=== PATIENT | female | born 1945 | race Caucasian/White ===

== ENCOUNTER 2021-07-18 15:16 | Inpatient (IN) | payer MEDICARE, SELFPAY ==
[~2021-07-18] VITALS: Ht 154.9 cm; Wt 56.7 kg
[2021-07-18 15:22] VITALS: BP 111/68
--- NOTE | 2021-07-18 16:40 | NUR ---
Dr. Tirado is evaluating pt at bedside
[2021-07-18] MEDS ORDERED: NACL 0.9% 1,000 ML IV ONE (16:45)
--- NOTE | 2021-07-18 17:20 | NUR ---
Lab at bedside
--- NOTE | 2021-07-18 17:28 | NUR ---
EMT at bedside for EKG
--- NOTE | 2021-07-18 17:49 | NUR ---
PT MOVED TO ER BED 5.
--- NOTE | 2021-07-18 17:50 | NUR ---
76 y/o F BIBA from [facility] c/o SOB episode x 15 minutes. Per EMS, patient presented with audible wheezes on scene and given Albuterol neb treatment. Pt baseline A&Ox2 baseline for pt. Unable to obtain complete assessment d/t patient mentation. Pt with adult diaper, Reddy catheter in place. Irregular pulse rate @ the radial. Pt placed onto monitoring engineer. SpO2 95% on 4L by NC. Bed locked in lowest position, side rails x 2 for pt safety. PMH: CKD3, recurrent falls, sleep apnea, dementia, HLD, HTN, hypothyroidism, Alzheimers, dementia, a Fib Meds: carvedilol, pradaxa, celexa, seroquel, ABX, citalopram, omperazole, levothyroxine, colchicine Allergies: busprione, odeine, lovastatin, trazodone, see list for full allergies
[2021-07-18 18:03] LABS: BASOPHILS # (AUTO) 0.1 K/uL (0.00-0.22); BASOPHILS % (AUTO) 0.6 % (0.0-2.0); EOSINOPHILS # (AUTO) 0.4 K/uL (0-0.4); EOSINOPHILS % (AUTO) 3.1 % (0.0-4.0); HEMATOCRIT 38.2 % (36-48); HEMOGLOBIN 12.7 g/dL (12.0-16.0); LYMPHOCYTES # (AUTO) 0.8 K/uL (2.5-16.5); MEAN CORPUSCULAR HEMOGLOBIN 29 pg (27-31); MEAN CORPUSCULAR HGB CONC 33 g/dL (33-37); MONOCYTES # (AUTO) 1.2 K/uL (0.8-1.0); MONOCYTES % (AUTO) 8.9 % (1.7-9.3); NEUTROPHILS # (AUTO) 10.8 K/uL (1.8-7.7); NEUTROPHILS % (AUTO) 81.4 % (42.2-75.2); PLATELET COUNT (AUTO) 472 K/uL (140-450); RED BLOOD CELL COUNT(AUTO) 4.38 MIL/uL (4.20-5.40); RED CELL DISTRIBUTION WIDTH 15.6 % (11.6-13.7); WHITE BLOOD COUNT (AUTO) 13.3 K/uL (4.8-10.8)
[2021-07-18 18:29] LABS: ALBUMIN 2.2 g/dL (3.4-5.0); ANION GAP 9.1 (8-16); ASPARTATE AMINOTRANSFERASE 23 U/L (15-37); CARBON DIOXIDE 25.8 mmol/L (21-32); CHLORIDE 104 mmol/L (98-107); CREATININE 0.9 mg/dL (0.6-1.3); GLUCOSE 118 mg/dL (74-106); LIPASE 186 U/L (73-393); POTASSIUM 3.9 mmol/L (3.5-5.1); SODIUM SERUM 135 mmol/L (136-145); TOTAL BILIRUBIN 0.4 mg/dL (0.0-1.0); UREA NITROGEN, BLOOD 19 mg/dL (7-18)
--- NOTE | 2021-07-18 19:05 | NUR ---
RT at bedside for ABG draw. Unable to draw
--- NOTE | 2021-07-18 19:20 | NUR ---
Report and transfer of care endorsed to RAFAEL Forrest
[2021-07-18] MEDS ORDERED: methylPREDNISolone SS 125 MG in WATER STERILE 2 ML IV ONE (22:45)
[2021-07-18] MEDS ORDERED: DILTIAZEM 25 MG/5 ML VIAL IVP ONE (22:45)
[2021-07-18] MEDS ORDERED: ALBUTEROL SULFATE/IPRATROPIU 3 ML SOL IH ONE (22:45)
[2021-07-18] MEDS ORDERED: AZITHROMYCIN 500 MG in DEXTROSE 5% 250 ML IV ONE (22:45)
--- NOTE | 2021-07-18 23:06 | NUR ---
RT AT BEDSIDE FOR BREATHING TREATMENT
[2021-07-18] MEDS ORDERED: AZITHROMYCIN 500 MG INJ VIAL IV ONE (23:09)
[2021-07-19 00:02] LABS: APPEARANCE,URINE CLOUDY (CLEAR); BILIRUBIN,URINE NEGATIVE (NEGATIVE); BLOOD, URINE 3+ (NEGATIVE); COLOR,URINE YELLOW (YELLOW); LEUKOCYTE ESTERASE ,URINE TRACE (NEGATIVE); NITRITE, URINE NEGATIVE (NEGATIVE); PH,URINE 5.5 (5.0-9.0); UGLUCOSE NEGATIVE (NEGATIVE)
[2021-07-19 00:10] LABS: RBC,URINE 50-80 /HPF (0-5); WBC,URINE 0-5 /HPF (0-5)
--- NOTE | 2021-07-19 01:08 | NUR ---
PT BROUGHT TO CT
--- NOTE | 2021-07-19 01:31 | NUR ---
PT BACK FROM CT
[2021-07-19] MEDS ORDERED: cefTRIAXone 1,000 MG VIAL ONE (01:59)
[2021-07-19] MEDS ORDERED: ONDANSETRON 4 MG/2 ML VIAL IVP ONE (04:50)
[2021-07-19] MEDS ORDERED: MORPHINE SULFATE 2 MG/ML SYR IVP ONE (04:50)
--- NOTE | 2021-07-19 07:19 | NUR ---
TRANSFER OF CARE REPORT GIVEN TO ROYCE HALL
--- NOTE | 2021-07-19 07:30 | NUR ---
RECEIVED PT IN [facility] AOX2. ON 2L NC SATURATION 98% iv INTACT AND PATENT SL. F/C DRAINING TO GRAVITY. NAD. SAFETY MAINTAINED.
[2021-07-19] MEDS ORDERED: ONDANSETRON 4 MG/2 ML VIAL ONE (08:14)
[2021-07-19] MEDS ORDERED: MORPHINE SULFATE 2 MG/ML SYR ONE (08:14)
--- NOTE | 2021-07-19 11:24 | NUR ---
PT RESTING IN [facility] NO CHANGES NOTED. PENDING [facility]
[2021-07-19] MEDS ORDERED: ATOR40TA PO (15:50)
[2021-07-19] MEDS ORDERED: ASCO-786 PO (15:50)
[2021-07-19] MEDS ORDERED: QUET25TA PO (15:50)
[2021-07-19] MEDS ORDERED: CARV3.12 PO (15:50)
[2021-07-19] MEDS ORDERED: CIPR250T3 PO (15:50)
[2021-07-19] MEDS ORDERED: MEMA5TAB PO (15:50)
[2021-07-19] MEDS ORDERED: CITA-71 PO (15:50)
[2021-07-19] MEDS ORDERED: DABI150C PO (15:50)
[2021-07-19] MEDS ORDERED: LORazepam 2 MG/ML VIAL IVP ONE (15:50)
--- NOTE | 2021-07-19 16:24 | NUR ---
PT AGITATED SCREAMING, ATTEMPTING TO HIT STAFF, MEDICATED WITH ATIVAN PER ORDER. TOLERATED WELL. PENDING ADMISSION
[2021-07-19] MEDS ORDERED: LORazepam 2 MG/ML VIAL ONE (18:18)
[2021-07-19] MEDS ORDERED: LORazepam 2 MG/ML VIAL IVP PRN (18:20)
--- NOTE | 2021-07-19 19:26 | NUR ---
RECIEVED REPORT FROM ROYCE HALL
[2021-07-19] MEDS ORDERED: MAG SULF 2000 MG/WATER PREMIX 50 ML IV PRN (20:15)
[2021-07-19] MEDS ORDERED: POTASSIUM CHLORIDE 10 MEQ TABER PO PRN (20:15)
[2021-07-19] MEDS ORDERED: ACETAMINOPHEN 325 MG TAB PO PRN (20:35)
[2021-07-19] MEDS ORDERED: DOCUSATE SODIUM 100 MG GELCAP PO PRN (20:35)
[2021-07-19] MEDS ORDERED: ONDANSETRON 4 MG/2 ML VIAL IM/IVP PRN (20:35)
[2021-07-19] MEDS ORDERED: ZOLPIDEM 5 MG TAB PO PRN (20:35)
[2021-07-19] MEDS ORDERED: PIPERACILLIN/TAZOBACTAM 3.375 GM VIAL IV ONE (20:53)
[2021-07-19] MEDS: PIPERACILLIN/TAZOBACTAM 3.375 GM in DEXTROSE 5% 50 ML IV SCH (22:45)
[2021-07-19 22:46] LABS: ALBUMIN 2.4 g/dL (3.4-5.0); ANION GAP 13.2 (8-16); ASPARTATE AMINOTRANSFERASE 28 U/L (15-37); CHLORIDE 105 mmol/L (98-107); CHOL/HDL RATIO 4.3 (1-4.5); CREATININE 0.8 mg/dL (0.6-1.3); GLUCOSE 99 mg/dL (74-106); HDL CHOLESTEROL 26 mg/dL (40-60); LDL (CALC) 74 mg/dL (60-100); POTASSIUM 4.2 mmol/L (3.5-5.1); SODIUM SERUM 140 mmol/L (136-145); THYROID STIMULATING HORMONE 3.43 uIU/mL (0.34-3.74); TOTAL BILIRUBIN 0.4 mg/dL (0.0-1.0); TRIGLYCERIDES 57 mg/dL (30-150); UREA NITROGEN, BLOOD 16 mg/dL (7-18)
[2021-07-19 23:15] LABS: PROTHROMBIN TIME 11.4 secs (10.8-13.4)
[2021-07-19] MEDS: NACL 0.9% 1,000 ML IV SCH (23:16)
[2021-07-19] MEDS: methylPREDNISolone SS 125 MG/2 ML VIAL IVP SCH (23:18)
[2021-07-19] MEDS: DABIGATRAN ETEXILATE MESYLAT 75 MG CAP PO SCH (23:46)
[2021-07-19] MEDS: ATORVASTATIN 20 MG TAB PO SCH (23:48)
[2021-07-19] MEDS: carvediloL 3.125 MG TAB PO SCH (23:48)
[2021-07-19] MEDS ORDERED: CRUSHER, PILL MC ONE (23:59)
--- NOTE | 2021-07-20 02:29 | NUR ---
PT IS RESTING COMFORTABLY IN BED, WITH RAILS UP X2, BED IN LOWEST POSITION, AND HOB SLIGHTLY RAISED. EMPTIED 1600ML OF URINE FROM JAVIER RESEVIOR.
[2021-07-20] MEDS ORDERED: PIPERACILLIN/TAZOBACTAM 3.375 GM VIAL IV ONE ×3 (04:52→21:14)
[2021-07-20] MEDS: methylPREDNISolone SS 125 MG/2 ML VIAL IVP SCH ×2 (05:08→13:08)
[2021-07-20] MEDS: PIPERACILLIN/TAZOBACTAM 3.375 GM in DEXTROSE 5% 50 ML IV SCH ×3 (05:09→22:20)
--- NOTE | 2021-07-20 07:30 | NUR ---
RECEIVED PT IN [facility] AOX1, CONFUSED AGITATED. F/C DRAINING TO GRAVITY. BREATHING UNLABORED. 2L NC SATURATION 97%. NAD. SAFETY MAINTAINED
[2021-07-20] MEDS: CITALOPRAM 20 MG TAB PO SCH (09:00)
[2021-07-20] MEDS: DABIGATRAN ETEXILATE MESYLAT 75 MG CAP PO SCH (09:00)
[2021-07-20] MEDS: ASCORBIC ACID 500 MG TAB PO SCH (09:00)
[2021-07-20] MEDS: QUEtiapine FUMARATE 25 MG TAB PO SCH (09:00)
[2021-07-20] MEDS: MEMANTINE 10 MG TAB PO SCH (09:00)
[2021-07-20] MEDS: carvediloL 3.125 MG TAB PO SCH ×2 (09:00→22:18)
--- NOTE | 2021-07-20 09:27 | NUR ---
PER PALOMO, CPT - PT REFUSED BLOOD DRAW
--- NOTE | 2021-07-20 09:30 | NUR ---
PT MEDICATED FOR AGITATION PER MD ORDER.
[2021-07-20] MEDS ORDERED: CRUSHER, PILL MC ONE ×2 (09:40→21:15)
[2021-07-20] MEDS ORDERED: LACTULOSE 20 GM/30 ML UDC PO ONE (10:45)
--- NOTE | 2021-07-20 11:00 | NUR ---
PT MORE CALM , RESTING IN GURNEY.
[2021-07-20] MEDS: NACL 0.9% 1,000 ML IV SCH (13:08)
--- NOTE | 2021-07-20 15:00 | NUR ---
PT INCONTINENT OF STOOL, BED BATH GIVEN. CLEANED AND REPOSITIONED. NAD. SAFETY MAINTAINED.
[2021-07-20 18:30] LABS: BASOPHILS % (AUTO) 0.1 % (0.0-2.0); HEMATOCRIT 38.5 % (36-48); HEMOGLOBIN 12.4 g/dL (12.0-16.0); LYMPHOCYTES # (AUTO) 0.4 K/uL (2.5-16.5); LYMPHOCYTES % (AUTO) 2.3 % (20.5-51.1); MEAN CORPUSCULAR HEMOGLOBIN 29 pg (27-31); MEAN CORPUSCULAR HGB CONC 32 g/dL (33-37); MEAN CORPUSCULAR VOLUME 88.3 fL (80-94); MONOCYTES # (AUTO) 0.3 K/uL (0.8-1.0); MONOCYTES % (AUTO) 1.6 % (1.7-9.3); NEUTROPHILS # (AUTO) 15.1 K/uL (1.8-7.7); PLATELET COUNT (AUTO) 546 K/uL (140-450); RED BLOOD CELL COUNT(AUTO) 4.36 MIL/uL (4.20-5.40); RED CELL DISTRIBUTION WIDTH 15.3 % (11.6-13.7); WHITE BLOOD COUNT (AUTO) 15.7 K/uL (4.8-10.8)
[2021-07-20 18:50] LABS: ANION GAP 10.2 (8-16); CARBON DIOXIDE 28.8 mmol/L (21-32); CHLORIDE 106 mmol/L (98-107); CREATININE 0.9 mg/dL (0.6-1.3); GLUCOSE 140 mg/dL (74-106); SODIUM SERUM 141 mmol/L (136-145); UREA NITROGEN, BLOOD 19 mg/dL (7-18)
[2021-07-20 18:53] LABS: MAGNESIUM 1.9 mg/dL (1.8-2.4)
--- NOTE | 2021-07-20 19:00 | NUR ---
PT ASLEEP NO S/S PAIN OR DISCOMFORT. F/C DRAINING TO GRAVITY. NAD. SAFETY MAINTAINED
--- NOTE | 2021-07-20 19:18 | NUR ---
REPORT RECIEVED FROM ROYCE HALL
[2021-07-20] MEDS: ATORVASTATIN 20 MG TAB PO SCH (22:17)
[2021-07-20] MEDS: methylPREDNISolone SS 40 MG/ML VIAL IVP SCH (22:19)
[2021-07-21] MEDS: DABIGATRAN ETEXILATE MESYLAT 75 MG CAP PO SCH ×3 (01:19→21:00)
[2021-07-21] MEDS: LORazepam 2 MG/ML VIAL IM/IVP PRN (01:37)
[2021-07-21] MEDS ORDERED: PIPERACILLIN/TAZOBACTAM 3.375 GM VIAL IV ONE (05:14)
[2021-07-21] MEDS: methylPREDNISolone SS 40 MG/ML VIAL IVP SCH ×3 (05:24→21:00)
[2021-07-21] MEDS: PIPERACILLIN/TAZOBACTAM 3.375 GM in DEXTROSE 5% 50 ML IV SCH ×3 (05:25→21:00)
--- NOTE | 2021-07-21 07:22 | NUR ---
Report and continuation of care received from RAFAEL Forrest
--- NOTE | 2021-07-21 07:22 | NUR ---
GAVE REPORT TO STEW HALL
--- NOTE | 2021-07-21 07:25 | NUR ---
Patient with both eyes open in semi-fowlers position; A&Ox1 patient confused, agitated and moaning.
--- NOTE | 2021-07-21 08:21 | NUR ---
Patient groaning in bed; reoriented to place and situation. Patient provided with blanket for comfort measures.
[2021-07-21] MEDS: carvediloL 3.125 MG TAB PO SCH ×2 (10:14→21:51)
[2021-07-21] MEDS: CITALOPRAM 20 MG TAB PO SCH (10:14)
[2021-07-21] MEDS: QUEtiapine FUMARATE 25 MG TAB PO SCH (10:15)
[2021-07-21] MEDS: ASCORBIC ACID 500 MG TAB PO SCH (10:15)
[2021-07-21] MEDS: MEMANTINE 10 MG TAB PO SCH (10:15)
--- NOTE | 2021-07-21 10:15 | NUR ---
Patient resting in low-fowlers facing left side. O2 remains in place SpO2 96% on 2L by NC. casino floor runner in place. Bed locked in lowest position, side rails x 2.
--- NOTE | 2021-07-21 10:25 | NUR ---
PATIENT HAS BEEN SCREENED AND CATEGORIZED MODERATE NUTRITION RISK. PATIENT WILL BE SEEN WITHIN 3-5 DAYS OF ADMISSION. 07/22/2021-07/24/[address]
--- NOTE | 2021-07-21 10:45 | NUR ---
PATIENT DISCONNECTED IV TO R UPPER ARM. ATTEMPTING TO ESTABLISH NEW LINE.
--- NOTE | 2021-07-21 10:50 | NUR ---
UNSUCCESSFUL AT STARTING IV.
--- NOTE | 2021-07-21 11:31 | NUR ---
Patient resting in semi-fowlers mumbling to self. 2L by NC in place. site monitor in place. Bed locked in lowest position, side rails x 2.
--- NOTE | 2021-07-21 11:32 | NUR ---
Spoke with Mark stinson normal mentation d/t Alzheimers and dementia and A&Ox1. Addendum: 07/21/21 at 1136 by JASPREET Reports has power of managing attorney and states plan to change patient's POLST d/t deteriorating health. Son provided with status update and aware of recontact upon bed placement for patient.
--- NOTE | 2021-07-21 11:39 | NUR ---
725mL urine discarded from Reddy catheter.
--- NOTE | 2021-07-21 11:45 | NUR ---
Attempted to start IV; patient agitated and fighting. Unable to obtain IV; will attempt later.
[2021-07-21] MEDS ORDERED: OLANZapine 10 MG VIAL IM ONE (12:30)
--- NOTE | 2021-07-21 12:30 | NUR ---
Verbal order received for Zyprexa 5mg IM.
--- NOTE | 2021-07-21 12:30 | NUR ---
Dr. Dueñas is evaluating pt at bedside
[2021-07-21] MEDS ORDERED: WATER STERILE 10 ML MC ONE (12:31)
--- NOTE | 2021-07-21 12:58 | NUR ---
validation technician at bedside
[2021-07-21] MEDS ORDERED: OLANZapine 10 MG VIAL IM SCH (13:30)
[2021-07-21] MEDS ORDERED: FLUCONAZOLE 200 MG/NS PREMIX 100 ML IV ONE (14:40)
--- NOTE | 2021-07-21 15:13 | NUR ---
RT at bedside for EKG
[2021-07-21] MEDS: AMIODARONE 200 MG TAB PO SCH (17:35)
--- NOTE | 2021-07-21 18:06 | NUR ---
Dr. Tan paged regarding order for PICC line. Unsuccessful at IV attempts at this time
--- NOTE | 2021-07-21 19:25 | NUR ---
Report and transfer of care endorsed to RAFAEL Lindquist
--- NOTE | 2021-07-21 20:00 | NUR ---
attempted to start iv. pt contracts arm and swipes. pt refuses iv
[2021-07-21] MEDS: FLUCONAZOLE 200 MG/NS PREMIX 100 ML IV SCH (21:00)
[2021-07-21] MEDS: ATORVASTATIN 20 MG TAB PO SCH (21:53)
[2021-07-21] MEDS: NACL 0.9% 1,000 ML IV SCH (22:35)
--- NOTE | 2021-07-22 00:04 | NUR ---
ATTEMPTED ONE LAST TIME TO INSER IV. PT REFUSED.
--- NOTE | 2021-07-22 03:03 | NUR ---
CALLED HOUSE SUP FOR PICC LINE NURSE
[2021-07-22] MEDS: PIPERACILLIN/TAZOBACTAM 3.375 GM in DEXTROSE 5% 50 ML IV SCH ×3 (05:00→21:00)
[2021-07-22] MEDS: methylPREDNISolone SS 40 MG/ML VIAL IVP SCH ×3 (05:00→23:17)
--- NOTE | 2021-07-22 05:33 | NUR ---
STILL WAITING FOR PICC LINE NURSE. PT IS AWAKE LYING IN SUPINE POSITION. A&OX0. PT IS RESPONSIVE TO PAIN. PT DOES NPT WANT TO BE READJUSTED
--- NOTE | 2021-07-22 07:57 | NUR ---
REPORT RECEIVED FROM SHAN BARNES FOR TRANSFER OF CARE
--- NOTE | 2021-07-22 07:59 | NUR ---
Pt report given to RONNI. Transfer of care at this time.
--- NOTE | 2021-07-22 08:00 | NUR ---
CALLED [facility] AND REQUESTED PICC LINE NURSE TO OBTAIN IV ACCESS
--- NOTE | 2021-07-22 08:18 | NUR ---
PT RESPOSITIONED FOR COMFORT AND PROVIDED WITH FRESH LINEN
[2021-07-22] MEDS: QUEtiapine FUMARATE 25 MG TAB PO SCH (08:29)
[2021-07-22] MEDS: MEMANTINE 10 MG TAB PO SCH (08:29)
[2021-07-22] MEDS: ASCORBIC ACID 500 MG TAB PO SCH (08:29)
[2021-07-22] MEDS: CITALOPRAM 20 MG TAB PO SCH (08:29)
[2021-07-22] MEDS: carvediloL 3.125 MG TAB PO SCH ×2 (08:29→22:57)
--- NOTE | 2021-07-22 08:29 | NUR ---
BS 109
[2021-07-22] MEDS: AMIODARONE 200 MG TAB PO SCH ×3 (09:00→22:58)
[2021-07-22] MEDS: DABIGATRAN ETEXILATE MESYLAT 75 MG CAP PO SCH ×2 (09:00→23:12)
--- NOTE | 2021-07-22 09:25 | NUR ---
Patient will be admitted to care of DR. COOK. Admited to TELE. Will go to room 119A. Belongings list completed. Report to RAFAEL MELGAR.
[2021-07-22 09:40] VITALS: BP 141/95
--- NOTE | 2021-07-22 09:40 | NUR ---
RECEIVED PT FROM ER NURSE FOR CONTINUITY OF CARE. PT IS AWAKE, BUT VERY DROWSY. NONVERBAL, MAKING NOISES. ON 3L O2 NC WITH BREATHING UNLABORED. O2 SAT IS 93%. NO DISTRESS NOTED. SKIN IS WARM, DRY, AND INTACT. JAVIER CATH IN PLACE. NO IV AT THIS TIME. PT IS A HARD STICK, WILL ATTEMPT TO PLACE IV SHORTLY. PICC LINE ORDER BUT NO CONSENT SIGNED. PT IS STABLE. PLAN OF CARE DISCUSSED.
[2021-07-22 10:25] LABS: PHOSPHORUS 2.9 mg/dL (2.5-4.9)
[2021-07-22 10:26] LABS: ANION GAP 11.6 (8-16); CARBON DIOXIDE 27.9 mmol/L (21-32); CHLORIDE 108 mmol/L (98-107); CREATININE 0.8 mg/dL (0.6-1.3); GLUCOSE 157 mg/dL (74-106); POTASSIUM 3.5 mmol/L (3.5-5.1); SODIUM SERUM 144 mmol/L (136-145); UREA NITROGEN, BLOOD 31 mg/dL (7-18)
--- NOTE | 2021-07-22 10:30 | NUR ---
NEW IV LINE PLACED IN THE RIGHT WRIST 22 GAUGE. PATENT, FLUSHING, AND BLOOD DRAWBACK NOTED. FLUIDS WERE STARTED ORDERED. PT STILL DISORIENTED AND NONVERBAL. STABLE AT THIS TIME.
[2021-07-22 10:50] LABS: BASOPHILS # (AUTO) 0.1 K/uL (0.00-0.22); BASOPHILS % (AUTO) 0.2 % (0.0-2.0); HEMATOCRIT 39.9 % (36-48); HEMOGLOBIN 13.3 g/dL (12.0-16.0); LYMPHOCYTES # (AUTO) 0.5 K/uL (2.5-16.5); LYMPHOCYTES % (AUTO) 1.9 % (20.5-51.1); MEAN CORPUSCULAR HEMOGLOBIN 29 pg (27-31); MEAN CORPUSCULAR HGB CONC 33 g/dL (33-37); MEAN CORPUSCULAR VOLUME 86.9 fL (80-94); MONOCYTES # (AUTO) 1.3 K/uL (0.8-1.0); MONOCYTES % (AUTO) 5.6 % (1.7-9.3); NEUTROPHILS # (AUTO) 21.7 K/uL (1.8-7.7); NEUTROPHILS % (AUTO) 92.3 % (42.2-75.2); PLATELET COUNT (AUTO) 870 K/uL (140-450); RED BLOOD CELL COUNT(AUTO) 4.59 MIL/uL (4.20-5.40); RED CELL DISTRIBUTION WIDTH 14.9 % (11.6-13.7); WHITE BLOOD COUNT (AUTO) 23.5 K/uL (4.8-10.8)
--- NOTE | 2021-07-22 11:01 | NUR ---
PT REFUSED TO TAKE MEDICATION SCHEDULED AT 0900 AM. PT IS NOT ALERT AND VERY DROWSY. WILL CONTINUE TO MONITOR.
--- NOTE | 2021-07-22 13:00 | NUR ---
PT WAS CHANGED AND REPOSITIONED. BED BATH GIVEN. GOWN CHANGED. ON 3L O2 NC WITH BREATHING UNLABORED. FLACC 0. IV IS PATENT AND INTACT. PT STABLE.
[2021-07-22] MEDS: NACL 0.9% 1,000 ML IV SCH (13:29)
--- NOTE | 2021-07-22 14:29 | NUR ---
RECEIVED VERBAL CONSENT FROM MARIA FERNANDA JOHNSON SON FOR PICC LINE INSERTION, VERIFIED BY FIDE TORREZ. SON DISCUSSED ABOUT CHANGING CODE STATUS TO DNR/COMFORT MEASURES, REFERRED HIM TO DR KWON. MESSAGE WERE SENT TO DR KWON REGARDING REQUEST FOR CODE STATUS CHANGE. PHONE NUMBER FOR MARIA FERNANDA [phone]
--- NOTE | 2021-07-22 14:38 | NUR ---
FAXED PICC LINE CONSENT TO DR. KWON [phone]. ALSO INFORMED HIM THAT THE PT HAS BEEN RECEIVING FLUIDS VIA IV AND MEDS THROUGH IV. INFORMED DR. KWON THAT PT IS REFUSING PO MEDS/FOOD. DOCTOR AWARE.
[2021-07-22 16:00] VITALS: BP 143/84
--- NOTE | 2021-07-22 18:07 | NUR ---
CALLED PICC LINE NURSE AND LEFT MESSAGE TO PLACE PICC LINE FOR PT. DETAILED VOICEMAIL LEFT WITH CALL BACK NUMBER.
--- NOTE | 2021-07-22 19:12 | NUR ---
ENDORSED PT TO SHERIFF DEPUTY NURSE FOR CONTINUITY OF CARE. PT IS STABLE. PLAN OF CARE DISCUSSED.
[2021-07-22 20:00] VITALS: BP 117/60
--- NOTE | 2021-07-22 20:00 | NUR ---
RECEIVED ENDORSEMENT FROM RN DAYSHIFT NURSE AT BEDSIDE FOR CONTINUITY OF CARE, PT IN STABLE CONDITION. PT IN BED AOX1 SHE IS ON 3 LITERS VIA N/C. SHE IS AWAKE AND WILL RESPOND TO NAME AND LIGHT SHAKING. V/S T 97.1 P 81 R 20 B/P 117/60 02 95% ON 3 LITERS VIA N/C. ALL FALLS PRECAUTIONS IN PLACE.
--- NOTE | 2021-07-22 21:00 | NUR ---
PT WAS GIVEN ORDERED DIFLUCAN IV VIA IV SITE ON LEFT HAND. PT ALSO GIVEN IVP SOLUMEDROL AND PO MEDS OF COREG, AMIODARONE, LIPITOR AND PARADOX. EDUCATION PROVIDED AT BEDSIDE, PT TOOK MOST OF THE MEDS WITH ENCOURAGEMENT BUT SPIT PT SOME OF IT OUT. PT ATE NONE OF HER SUPPER AT BEDSIDE. PT UNABLE TO VERBALIZE UNDERSTANDING OF MEDICATION AND PURPOSE OF MEDICATIONS.
--- NOTE | 2021-07-22 22:00 | NUR ---
HILTON HUNG AND RUNNING ORDERED.
[2021-07-22] MEDS: ATORVASTATIN 20 MG TAB PO SCH (22:57)
[2021-07-22] MEDS: FLUCONAZOLE 200 MG/NS PREMIX 100 ML IV SCH (23:18)
[2021-07-23] VITALS: BP 130/90
--- NOTE | 2021-07-23 | NUR ---
PT IN BED HOB UP 45% PT DECLINED TO BE TURNED AT THIS TIME. NORMAL SALINE RUNNING AT 60MLS/HR ORDERED. PT HAS NO S/S OF PAIN OR DISTRESS NOTED. V/S FOLLOWS: T 97.0 P 81 R 18 B/P 1302/90 02 95% ON 3 LITERS VIA N/C. ALL ORDERED PRECAUTIONS IN PLACE. AWAITING RETURN CALL FROM PICC LINE NURSE FOR PLACEMENT.
[2021-07-23] MEDS: PIPERACILLIN/TAZOBACTAM 3.375 GM in DEXTROSE 5% 50 ML IV SCH ×3 (00:23→23:30)
[2021-07-23 04:00] VITALS: BP 132/89
[2021-07-23] MEDS: methylPREDNISolone SS 40 MG/ML VIAL IVP SCH ×3 (05:14→23:30)
[2021-07-23 06:44] LABS: BASOPHILS % (AUTO) 0.2 % (0.0-2.0); EOSINOPHILS % (AUTO) 0.1 % (0.0-4.0); HEMATOCRIT 36.6 % (36-48); HEMOGLOBIN 12.1 g/dL (12.0-16.0); LYMPHOCYTES # (AUTO) 0.3 K/uL (2.5-16.5); LYMPHOCYTES % (AUTO) 1.8 % (20.5-51.1); MEAN CORPUSCULAR HEMOGLOBIN 29 pg (27-31); MEAN CORPUSCULAR HGB CONC 33 g/dL (33-37); MEAN CORPUSCULAR VOLUME 86.4 fL (80-94); MONOCYTES # (AUTO) 0.4 K/uL (0.8-1.0); MONOCYTES % (AUTO) 2.2 % (1.7-9.3); NEUTROPHILS # (AUTO) 17.5 K/uL (1.8-7.7); NEUTROPHILS % (AUTO) 95.7 % (42.2-75.2); PLATELET COUNT (AUTO) 749 K/uL (140-450); RED BLOOD CELL COUNT(AUTO) 4.24 MIL/uL (4.20-5.40); RED CELL DISTRIBUTION WIDTH 15.2 % (11.6-13.7); WHITE BLOOD COUNT (AUTO) 18.3 K/uL (4.8-10.8)
[2021-07-23 07:16] LABS: CARBON DIOXIDE 29.8 mmol/L (21-32); CHLORIDE 112 mmol/L (98-107); CREATININE 1.1 mg/dL (0.6-1.3); GLUCOSE 144 mg/dL (74-106); POTASSIUM 3.8 mmol/L (3.5-5.1); SODIUM SERUM 149 mmol/L (136-145); UREA NITROGEN, BLOOD 38 mg/dL (7-18)
--- NOTE | 2021-07-23 07:25 | NUR ---
RECEIVED BEDSIDE REPORT FROM CORRECTIONAL CLASSIFICATION COUNSELOR NURSE FOR CONTINUITY OF CARE. PT IS ASLEEP. CHEST RISE AND FALL SYMMETRICAL. ON 3L O2 NC WITH BREATHING UNLABORED. JAVIER CATH IN PLACE DRAINING CLEAR, YELLOW URINE. SKIN IS WARM, DRY, AND INTACT. IV IS IN THE RIGHT WRIST 22 GAUGE RUNNING NS AT 60 ML PER HOUR PER ORDER. PT IS STABLE. PLAN OF CARE DISCUSSED.
[2021-07-23 07:29] LABS: MAGNESIUM 2.1 mg/dL (1.8-2.4); PHOSPHORUS 2.9 mg/dL (2.5-4.9)
[2021-07-23] MEDS: NACL 0.9% 1,000 ML IV SCH (07:55)
[2021-07-23 08:00] VITALS: BP 178/92
[2021-07-23] MEDS: carvediloL 3.125 MG TAB PO SCH ×2 (09:00→21:00)
[2021-07-23] MEDS: ASCORBIC ACID 500 MG TAB PO SCH (09:00)
[2021-07-23] MEDS: AMIODARONE 200 MG TAB PO SCH ×2 (09:00→21:00)
[2021-07-23] MEDS: DABIGATRAN ETEXILATE MESYLAT 75 MG CAP PO SCH ×2 (09:00→21:00)
[2021-07-23] MEDS: CITALOPRAM 20 MG TAB PO SCH (09:00)
[2021-07-23] MEDS: MEMANTINE 10 MG TAB PO SCH (09:00)
[2021-07-23] MEDS: QUEtiapine FUMARATE 25 MG TAB PO SCH (09:00)
--- NOTE | 2021-07-23 09:30 | NUR ---
PT IS LETHARGIC AND DOES NOT WANT TO EAT BREAKFAST. ATTEMPTED TO FEED PT AND SHE WOULD NOT OPEN MOUTH. PT REFUSED. INFORMED DR. KWON THAT PT HAS BEEN REFUSING MEDS AND FOOD. SUGGESTED SWALLOW EVAL AND HE AGREED. PT WILL BE PLACED ON NPO TILL EVAL IS COMPLETE.
--- NOTE | 2021-07-23 10:00 | NUR ---
SPOKE TO DR. KWON, INFORMING HIM THAT THE IV IN THE RIGHT HAND IS WORKING AND PATENT. HE STATED TO HOLD OFF ON THE PICC LINE INSERTION FOR NOW.
--- NOTE | 2021-07-23 10:28 | NUR ---
RECHECKED PT'S BP TWICE. FIRST READING 166/93 AND THE SECOND 172/92. HR IS 80. INFORMED DR. KWON ABOUT THE BP AND ASKED FOR BP MED VIA IV ROUTE. WILL WAIT FOR RESPONSE BACK.
[2021-07-23] MEDS: hydrALAZINE 20 MG/ML VIAL IVP PRN ×2 (11:25→18:00)
--- NOTE | 2021-07-23 11:25 | NUR ---
APRESOLINE IVP GIVEN FOR BP 172/92, HR 80. WILL CONTINUE TO MONITOR BP.
[2021-07-23 12:00] VITALS: BP 155/87
--- NOTE | 2021-07-23 12:18 | NUR ---
07/23/2021 RD INITIAL ASSESSMENT COMPLETED PLEASE REFER TO NUTRITION ASSESSMENT UNDER CARE ACTIVITY FOR ESTIMATED NUTRITIONAL NEEDS. ADVANCE DIET PER KAIAKO KURA [place] MAORI RECOMMENDATIONS ELEVATED NUTRITION RISK TO HIGH DUE TO PT REFUSAL TO EAT, NPO STATUS RD TO FOLLOW-UP IN 2-3 DAYS PATIENT IS HIGH RISK. CHARLIE BARNHART, RD
--- NOTE | 2021-07-23 12:30 | NUR ---
PT WAS ASSESSED BY SPEECH THERAPIST FOR ST EVAL. RECOMMENDED G TUBE PLACEMENT AND NPO STATUS. PT WAS UNABLE TO EAT OR DRINK SAFELY.
--- NOTE | 2021-07-23 13:59 | NUR ---
ROUNDED ON PT. SHE IS ASLEEP. CHEST RISE AND FALL SYMMETRICAL. PT BRIEFLY WAKES UP WITH SHAKING BUT IS VERY DROWSY. NONVERBAL. NOT ABLE TO MAKE NEEDS KNOWN. IV IS PATENT AND INTACT. WILL CONTINUE TO MONITOR.
--- NOTE | 2021-07-23 15:30 | NUR ---
PT IS CHANGED AND REPOSITIONED. NO DISTRESS NOTED. ON 3L O2 NC WITH BREATHING UNLABORED. IV IS INTACT. CALL LIGHT WITHIN REACH. WILL CONTINUE TO MONITOR PT.
[2021-07-23 16:00] VITALS: BP 171/99
--- NOTE | 2021-07-23 17:24 | NUR ---
PT ASLEEP IN SEMI FOWLERS POSITION. BREATHING IS UNLABORED ON NC. PT IS STABLE. WILL MONITOR.
--- NOTE | 2021-07-23 18:03 | NUR ---
PT WAS GIVEN HYDRALAZINE IVP FOR ELEVATED BP. IV IS PATENT AND INFUSING FLUID WELL. WILL MONITOR BP.
--- NOTE | 2021-07-23 19:15 | NUR ---
ENDORSED PT TO TOP DYEING MACHINE LOADER NURSE FOR CONTINUITY OF CARE. PT IS STABLE. PLAN OF CARE DISCUSSED.
--- NOTE | 2021-07-23 19:30 | NUR ---
RECEIVED REPORT FROM RN JACQUELINE AT BEDSIDE FOR CONTINUITY OF CARE , PT IN STABLE CONDITION.
[2021-07-23 20:00] VITALS: BP 155/89
--- NOTE | 2021-07-23 20:00 | NUR ---
RECEIVED ENDORSEMENT FROM RN DAYSHIFT NURSE , WHOM SPOKE WITH MD KWON REGARDING PLACEMENT OF PICC LINE, TO HOLD OFF PLACEMENT DUE TO ASSESSMENT OF PT FOR HOSPICE CARE PICC LINE NURSE MADE AWARE.
--- NOTE | 2021-07-23 20:22 | NUR ---
PT SLEEPING COMFORTABLY ON 3LNC WILL CONTINUE TO MONITOR
[2021-07-23] MEDS: FLUCONAZOLE 200 MG/NS PREMIX 100 ML IV SCH (21:00)
[2021-07-23] MEDS: ATORVASTATIN 20 MG TAB PO SCH (21:00)
--- NOTE | 2021-07-23 21:00 | NUR ---
HILTON HUNG ANDS RUNNING ORDERED. ALL ORDERED PRECAUTIONS IN PLACE.
--- NOTE | 2021-07-23 22:00 | NUR ---
DIFLUCAN IV ABT HUNG AND RUNNING ORDERED. PT UNABLE TO COMPREHEND TEACHING OF MEDICATION AND IT'S PURPOSES.
[2021-07-24] VITALS: BP 106/82
[2021-07-24] MEDS: NACL 0.9% 1,000 ML IV SCH ×2 (00:35→16:57)
--- NOTE | 2021-07-24 01:00 | NUR ---
PT IN BED, SHE WAS TURNED, CHANGED AND REPOSITIONED IN BED. JAVIER CATHETER CARE PROVIDED . ALL ORDERED PRECAUTIONS IN PLACE.
[2021-07-24 04:00] VITALS: BP 136/66
--- NOTE | 2021-07-24 04:30 | NUR ---
P IN BED NO S/S OF PAIN OR DISTRESS NOTED. N/S RUNNING AT 60MLS/HR V/S FOLLOWS: T 97.6 P 63 R 15 B/P136/66 02 100% ON 2 LITERS VIA N/C. ALL ORDERED PRECAUTIONS IN PLACE.
[2021-07-24] MEDS: methylPREDNISolone SS 40 MG/ML VIAL IVP SCH ×3 (05:00→22:59)
[2021-07-24] MEDS: PIPERACILLIN/TAZOBACTAM 3.375 GM in DEXTROSE 5% 50 ML IV SCH (05:00)
--- NOTE | 2021-07-24 05:30 | NUR ---
PT GIVEN ORDERED SOLUMEDROL AND ZOSYN HUNG AND RUNNING ORDERED.
[2021-07-24 07:15] LABS: BASOPHILS % (AUTO) 0.1 % (0.0-2.0); EOSINOPHILS % (AUTO) 0.1 % (0.0-4.0); HEMATOCRIT 30.4 % (36-48); LYMPHOCYTES # (AUTO) 0.5 K/uL (2.5-16.5); LYMPHOCYTES % (AUTO) 3.1 % (20.5-51.1); MEAN CORPUSCULAR HEMOGLOBIN 29 pg (27-31); MEAN CORPUSCULAR HGB CONC 33 g/dL (33-37); MEAN CORPUSCULAR VOLUME 88.5 fL (80-94); MONOCYTES # (AUTO) 0.4 K/uL (0.8-1.0); MONOCYTES % (AUTO) 2.2 % (1.7-9.3); NEUTROPHILS # (AUTO) 15.6 K/uL (1.8-7.7); NEUTROPHILS % (AUTO) 94.5 % (42.2-75.2); PLATELET COUNT (AUTO) 555 K/uL (140-450); RED BLOOD CELL COUNT(AUTO) 3.43 MIL/uL (4.20-5.40); RED CELL DISTRIBUTION WIDTH 15.3 % (11.6-13.7); WHITE BLOOD COUNT (AUTO) 16.5 K/uL (4.8-10.8)
[2021-07-24 07:21] LABS: ANION GAP 8.8 (8-16); CARBON DIOXIDE 30.9 mmol/L (21-32); CHLORIDE 117 mmol/L (98-107); CREATININE 1.1 mg/dL (0.6-1.3); GLUCOSE 132 mg/dL (74-106); POTASSIUM 3.7 mmol/L (3.5-5.1); SODIUM SERUM 153 mmol/L (136-145); UREA NITROGEN, BLOOD 41 mg/dL (7-18)
--- NOTE | 2021-07-24 07:25 | NUR ---
RECEIVED BEDSIDE REPORT FROM FLY RAISER LOCKSTITCH NURSE FOR CONTINUITY OF CARE. PT IS AWAKE WITH EYES OPEN. NONVERBAL, NOT RESPONDING TO QUESTIONS. ON 3L O2 NC WITH BREATHING UNLABORED. JAVIER CATH IN PLACE DRAINING URINE. SKIN IS WARM, DRY, AND INTACT. IV IS IN THE RIGHT WRIST 22 GAUGE RUNNING NS AT 60 ML PER HOUR PER ORDER. PT IS STABLE. PLAN OF CARE DISCUSSED.
[2021-07-24 08:00] VITALS: BP 179/140
[2021-07-24 08:11] LABS: MAGNESIUM 2.2 mg/dL (1.8-2.4); PHOSPHORUS 3.1 mg/dL (2.5-4.9)
[2021-07-24] MEDS: AMIODARONE 200 MG TAB PO SCH ×2 (09:00→23:04)
[2021-07-24] MEDS: ASCORBIC ACID 500 MG TAB PO SCH (09:00)
[2021-07-24] MEDS: DABIGATRAN ETEXILATE MESYLAT 75 MG CAP PO SCH ×2 (09:00→23:00)
[2021-07-24] MEDS: CITALOPRAM 20 MG TAB PO SCH (09:00)
[2021-07-24] MEDS: QUEtiapine FUMARATE 25 MG TAB PO SCH (09:00)
[2021-07-24] MEDS: MEMANTINE 10 MG TAB PO SCH (09:00)
[2021-07-24] MEDS: carvediloL 3.125 MG TAB PO SCH ×2 (09:00→23:05)
[2021-07-24] MEDS: hydrALAZINE 20 MG/ML VIAL IVP PRN (09:41)
--- NOTE | 2021-07-24 09:41 | NUR ---
HYDRALAZINE GIVEN IVP FOR ELEVATED BP. HR IS SR ON TELE MONITOR. WILL CONTINUE TO MONITOR BP. IV IS PATENT AND FLUSHING WELL IN THE RIGHT HAND.
--- NOTE | 2021-07-24 11:00 | NUR ---
SPOKE TO NATHALIE FROM [facility] [phone]. INFORMED HER ABOUT THE CONDITION OF THE PATIENT. THEY STATED THEY WOULD CALL BACK IF THEY HAD ANYMORE QUESTIONS. THE PT WILL BE DISCHARGED ON HOSPICE TO [facility].
--- NOTE | 2021-07-24 11:25 | NUR ---
ROUNDED ON PT. SHE IS AWOKEN BY SHAKING AND CALLING NAME. PT RESPONDS TO NAME AND QUESTIONS. PT APPEARS CONFUSED. A&OX1. WILL CONTINUE TO MONITOR.
[2021-07-24] MEDS ORDERED: [UNRECOGNIZED DRUG - OTHER] (11:44)
[2021-07-24] MEDS ORDERED: IV Zosyn IV (11:44)
[2021-07-24 12:00] VITALS: BP 133/58
--- NOTE | 2021-07-24 13:00 | NUR ---
PT IS SLEEPING. CHEST RISE AND FALL SYMMETRICAL. ON 3L O2 NC WITH BREATHING UNLABORED. PT IS STABLE. FLACC 0. WILL CONTINUE TO MONITOR.
--- NOTE | 2021-07-24 13:23 | NUR ---
RECEIVED ANOTHER CALL FROM NATHALIE FROM [facility]. PROVIDED WBC AND MICROBIOLOGY RESULTS. SHE STATED SHE WOULD CALL BACK WHEN SHE GETS A VERIFIED BONDING MOLDER TIME FROM [facility].
--- NOTE | 2021-07-24 13:26 | NUR ---
SKIN ASSESSMENT DONE, NO OPEN SKIN. BLE MULTIPLE DRY SCABS, NO EDEMA, OFFLOAD BILATERAL HEELS. RECOMMENDATIONS: -APPLY HYDRAGUARD TO BLE BID AND YOEL -TURN AND REPOSITION PATIENT Q 2H -ASSESS AND MONITOR SKIN CONDITION DURING POSITION CHANGE -OFFLOAD BILATERAL HEELS BY PLACING PILLOWS UNDER CALVES AT ALL TIMES, UNLESS OTHERWISE CONTRAINDICATED -PRESSURE REDISTRIBUTION SURFACE THERAPY -KEEP SKIN CLEAN AND DRY AT ALL TIMES.
--- NOTE | 2021-07-24 14:07 | NUR ---
SPOKE TO MICHI, ADMINISTRATIVE TECH, ABOUT DISCHARGE WITH HOSPICE. SHE STATED SHE WILL INFORM ME WHEN THERE IS A PICKUP TIME.
--- NOTE | 2021-07-24 15:34 | NUR ---
ROUNDED ON PT. SHE IS AWAKE AND CONFUSED. A&OX1. ABLE TO EXPRESS NEEDS. PT REQUESTED ANOTHER BLANKET AND THAT WAS PROVIDED. IV IS INTACT AND INFUSING FLUID ORDERED. NO DISTRESS AT THIS TIME.
[2021-07-24 16:00] VITALS: BP 142/76
--- NOTE | 2021-07-24 16:14 | NUR ---
CALLED MICHI, SUPERVISOR WELDING EQUIPMENT REPAIRER, AND SHE STATED THAT THERE IS NO AVAILABLE BED AT [facility]. PT WILL NOT BE DISCHARGED TODAY. WILL FOLLOW UP IN THE AM.
--- NOTE | 2021-07-24 16:15 | NUR ---
DC PLANNING: PATIENT SIGNED HOSPICE WITH [facility], PER MICHEL [facility] HAS NO AVAILABLE BED AT THIS TIME BUT WILL HAVE OPEN BED TOMORROW. DC PLAN TO GO BACK TO [facility] WITH [facility].
--- NOTE | 2021-07-24 17:04 | NUR ---
ASKED PT IF HE WANTED TO CHANGE THE DIET ORDER SUGGESTED BY SPEECH THERAPIST. RECOMMENDED PUREE DIET WITH THICKENED LIQUID. PT IS CURRENTLY NPO. WILL WAIT FOR RESPONSE. Addendum: 07/24/21 at 1707 by Olivia Kramer RN ASK DR. KWON VIA MESSAGE IF HE WANTED TO CHANGE THE DIET ORDER SUGGESTED BY SPEECH THERAPIST. DID NOT ASK THE PT.
--- NOTE | 2021-07-24 17:37 | NUR ---
PER DR. KWON PT DIET ORDER CAN BE CHANGED TO PUREE DIET WITH THICKENED LIQUID.
--- NOTE | 2021-07-24 18:16 | NUR ---
PT IS ASLEEP. NO DISTRESS NOTED ON 3L O2 NC. FLACC 0. IV IS INTACT AND IN PLACE. WILL CONTINUE TO MONITOR.
--- NOTE | 2021-07-24 19:21 | NUR ---
ENDORSED PT TO DEPARTMENT OPERATIONS MANAGER NURSE FOR CONTINUITY OF CARE. PT IS STABLE. PLAN OF CARE DISCUSSED.
--- NOTE | 2021-07-24 19:25 | NUR ---
PT PRESENTS ASLEEP IN BED SATING 93% ON 3 LPM NC NO SIGNS OF RESPIRATORY DISTRESS WILL CONTINUE TO MONITOR.
[2021-07-24 20:00] VITALS: BP 113/59
--- NOTE | 2021-07-24 20:00 | NUR ---
Received patient from AM shift nurse. Patient is stable with no s/s of distress at this time. Patient is covered in feces that patient has been digging into. Will provide care and monitor throughout the shift.
[2021-07-24] MEDS: FLUCONAZOLE 200 MG/NS PREMIX 100 ML IV SCH (22:51)
[2021-07-24] MEDS: ATORVASTATIN 20 MG TAB PO SCH (23:04)
[2021-07-25] VITALS: BP 142/86
--- NOTE | 2021-07-25 | NUR ---
ROUNDS: All evening medications and interventions have been completed. Patient is awake and confused. Will continue to monitor.
--- NOTE | 2021-07-25 00:15 | NUR ---
Patient has a lot of anxiety and is tugging on her lines despite reorientation a redirection will administered PRN as ordered.
[2021-07-25] MEDS: HYDRAGUARD CREAM TP SCH ×2 (00:32→12:39)
[2021-07-25] MEDS: LORazepam 2 MG/ML VIAL IM/IVP PRN (00:33)
--- NOTE | 2021-07-25 03:00 | NUR ---
ROUND: Patient is awake but resting no further anxiety noted will monitor.
[2021-07-25 04:00] VITALS: BP 137/76
[2021-07-25] MEDS: methylPREDNISolone SS 40 MG/ML VIAL IVP SCH ×2 (04:55→12:39)
--- NOTE | 2021-07-25 06:35 | NUR ---
Patient is currently awake and resting. All shift intervention have been completed and patient is currently stable with no s/s of distress noted at this time. Will endorse further care to AM shift nurse for continuity of care.
--- NOTE | 2021-07-25 07:35 | NUR ---
RECEIVED BEDSIDE REPORT FROM MANUFACTURED BUILDINGS SUPERVISOR NURSE FOR CONTINUITY OF CARE. PT IS AWAKE WITH EYES OPEN. NONVERBAL, NOT RESPONDING TO QUESTIONS. ON 3L O2 NC WITH BREATHING UNLABORED. NO DISTRESS NOTED. JAVIER CATH IN PLACE DRAINING URINE. SKIN IS WARM, DRY, AND INTACT. IV IS IN THE RIGHT WRIST 22 GAUGE RUNNING NS AT 60 ML PER HOUR PER ORDER. PT IS STABLE. PLAN OF CARE DISCUSSED. SAFETY PRECAUTIONS IN PLACE. CALL LIGHT WITHIN REACH. WILL CONTINUE TO MONITOR.
--- NOTE | 2021-07-25 07:56 | NUR ---
RECEIVED PATIENT REPORT FROM MICROFILM MACHINE OPERATOR NURSE FOR CONTINUITY OF CARE. PATIENT IN BED AWAKE,AX2. BREATHING EVEN AND UNLABORED WITH NO SOB NOTED. NOT IN DISTRESS. DENIES ANY PAIN, ON ROOM AIR PATIENT HAS RIGHT UPPER ARM PICC, ENDORSED FROM MICROFILM MACHINE OPERATOR THAT PATIENT NEED BE INSERT NGT FOR PO CONTRAST , NOTED BILATERAL EDEMA IN BOTH EXTREMITIES ALL SAFETY MEASURES ON PLACE CALLS LIGHT WITHIN REACH Addendum: 07/25/21 at 0802 by Pat Younger RN RN WRONG PATIENT
[2021-07-25 08:00] VITALS: BP 130/72
[2021-07-25] MEDS: NACL 0.9% 1,000 ML IV SCH (09:26)
[2021-07-25] MEDS: QUEtiapine FUMARATE 25 MG TAB PO SCH (09:26)
[2021-07-25] MEDS: ASCORBIC ACID 500 MG TAB PO SCH (09:26)
[2021-07-25] MEDS: AMIODARONE 200 MG TAB PO SCH (09:30)
[2021-07-25] MEDS: DABIGATRAN ETEXILATE MESYLAT 75 MG CAP PO SCH (09:30)
[2021-07-25] MEDS: MEMANTINE 10 MG TAB PO SCH (09:31)
[2021-07-25] MEDS: CITALOPRAM 20 MG TAB PO SCH (09:31)
[2021-07-25] MEDS: carvediloL 3.125 MG TAB PO SCH (09:38)
--- NOTE | 2021-07-25 09:55 | NUR ---
ALL SCHEDULED MEDS GIVEN. PT IS STABLE. NO DISTRESS NOTED. WILL CONTINUE TO MONITOR.
--- NOTE | 2021-07-25 11:30 | NUR ---
RECEIVED A CALL FROM [facility]. SHAN ZELAYA INFORMED ME THAT THEY WILL BE SETTING UP TRANSPORTATION FOR PATIENT TO BE PICKED UP AT 1330. WILL NOTIFY TAYA.
[2021-07-25 12:00] VITALS: BP 180/94
[2021-07-25] MEDS: hydrALAZINE 20 MG/ML VIAL IVP PRN (12:41)
[2021-07-25 13:50] VITALS: BP 98/56
--- NOTE | 2021-07-25 13:55 | NUR ---
CONTACTED [facility] AND ENDORSED PATIENT REPORT TO DELLA ESCOBEDO NURSE PRECISION GRINDER EXTERNAL. NOTIFIED THEM THAT PATIENT WAS SUPPOSED TO BE PICKED UP AT 1330 BUT CURRENTLY DELAYED. WILL AWAIT FOR TRANSPORTATION TO ARRIVE.
--- NOTE | 2021-07-25 14:30 | NUR ---
ENDORSED DISCHARGE INSTRUCTIONS TO PATIENT. PATIENT UNABLE TO COMPREHEND AND SIGN DISCHARGE FORMS.
--- NOTE | 2021-07-25 14:40 | NUR ---
PATIENT DISCHARGED OFF THE UNIT WITH IV AND JAVIER IN PLACE. PICKED UP BY TRANSPORTATION WITH [facility]. PT WAS STABLE PRIOR TO DISCHARGE.
[2021-07-26] MEDS ORDERED: AMIODARONE 200 MG TAB PO SCH (09:00)
== END 2021-07-25 14:40 | disposition hospice, inpatient (51) | DRG 871 ==
LOC: MED 15:16 → MMU 07-19 17:25 → MTU 07-22 06:27
DX: A41.9 Sepsis, unspecified organism (principal); G93.41 Metabolic encephalopathy; E43 Unspecified severe protein-calorie malnutrition; J18.9 Pneumonia, unspecified organism; J96.01 Acute respiratory failure with hypoxia; B37.49 Other urogenital candidiasis; E87.1 Hypo-osmolality and hyponatremia; N17.9 Acute kidney failure, unspecified; L03.115 Cellulitis of right lower limb; Z96.612 Presence of left artificial shoulder joint; G47.30 Sleep apnea, unspecified; F03.90 Unspecified dementia, unspecified severity, without behavioral disturbance, psychotic disturbance, mood disturbance, and anxiety; E78.5 Hyperlipidemia, unspecified; F32.9 Major depressive disorder, single episode, unspecified; Z20.822 Contact with and (suspected) exposure to COVID-19; I70.0 Atherosclerosis of aorta; N18.30 Chronic kidney disease, stage 3 unspecified; R29.6 Repeated falls; E86.0 Dehydration; M47.815 Spondylosis without myelopathy or radiculopathy, thoracolumbar region; M41.86 Other forms of scoliosis, lumbar region; K72.90 Hepatic failure, unspecified without coma; I16.0 Hypertensive urgency; I48.0 Paroxysmal atrial fibrillation; I12.9 Hypertensive chronic kidney disease with stage 1 through stage 4 chronic kidney disease, or unspecified chronic kidney disease; R13.10 Dysphagia, unspecified; Z96.611 Presence of right artificial shoulder joint; Z86.73 Personal history of transient ischemic attack (TIA), and cerebral infarction without residual deficits; Z88.5 Allergy status to narcotic agent; Z88.8 Allergy status to other drugs, medicaments and biological substances; Z79.899 Other long term (current) drug therapy; Z88.2 Allergy status to sulfonamides; Z68.23 Body mass index [BMI] 23.0-23.9, adult
CPT/HCPCS: 36415; 36600; 71045; 71275; 80048; 80053; 81001; 82140; 82803; 83036; 83605; 83690; 83735; 83880; 84100; 84134; 84436; 84443; 84484; 85025; 85610; 85730; 87040; 87081; 87086; 87804; 92610; 93005; 94640; 96361; 96365; 96375; 97110; 97112; 97163-GP; 97530; 99291; J0360; J0456; J0696; J1450; J2060; J2270; J2405; J2543; J2920; J2930; J3490; J7060; Q0092; Q9967